=== PATIENT | male | born 2005 | race Caucasian/White ===

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

== ENCOUNTER 2023-02-27 08:08 | Outpatient (NON) | payer OTHER, SELFPAY | END 2023-02-27 08:09 | disposition home or self-care (01) | LOC: ANHLAB 02-28 08:11 | PROVIDERS: PCP Family Medicine; Visit Provider Internal Medicine Gastroenterology | DX: R10.9 Unspecified abdominal pain (principal) | CPT/HCPCS: 88305 ==

== ENCOUNTER 2023-02-27 08:11 | Day surgery (SDC) | payer OTHER, SELFPAY ==
[2023-02-22 14:42] VITALS: BMI 26.7
[2023-02-27 08:40] VITALS: BP 142/84; PULSE 60; RESP 20; TEMP 36.1; O2SAT 99
--- NOTE | 2023-02-27 09:06 | WPDANESEPPF ---
Anes - Initial Pre Proc Eval Procedure: Operation Date: 02/27/23 10:00 Proposed Procedures p Diagnostic Colonoscopy - Ko Whyte MD Date/Time: 02/27/23 09:06 Surgeon: Ko Whyte MD Pre Op Diagnosis: Abdominal Pain and Irritable Bowel Syndrome Patient Data Age: 18 Gender: M Height: 1.63 m Weight: 70.76 kg Allergies Allergy/AdvReac Type Severity Reaction Status Date / Time No Known Allergies Allergy Unknown Verified 02/22/23 14:32 Home Medications Medication Instructions Recorded Confirmed Type escitalopram oxalate 10 mg tablet 10 mg PO DAILY 02/22/23 02/22/23 History (Lexapro) Patient hx anesthesia problems: none Family hx anesthesia problems: none Results Review: All pre-operative results and documents have been reviewed as part of the pre-operative evaluation. [facility] [place] Past Medical History Medical History Abdominal pain Alopecia (~2021) TSH 2.03, free T4-1 3, vitamin B12 426, folic acid 10.0, iron 64 with 19% saturation and ferritin low at 34. Altered bowel habits Bloating BMI 26.0-26.9,adult BMI 27.0-27.9,adult BMI 28.0-28.9,adult BMI 31.0-31.9,adult BMI 33.0-33.9,adult BMI 34.0-34.9,adult Chronic anxiety COVID-19 (~06/03/22) fully vaccinated with symptoms for 10 days Eczema IBS (irritable bowel syndrome) Low back pain Mixed hyperlipidemia (08/23/22) total cholesterol 200, triglycerides 164, HDL low at 35, LDL 135 with ratio of 5.7 on 08/23/2022. Overweight (BMI 25.0-29.9) Seasonal allergies [employer] Surgical History Surgical History (Updated 02/27/23 @ 09:06 by Ever Watts MD) H/O wisdom tooth extraction Family History Family History Grandparent Diabetes mellitus, Onset Age: 50 Father Family history of cardiac disorder Social History Social History Smoking status: Never smoker Second hand tobacco smoke exposure: No Alcohol intake: never Substance use: never Substance use type: does not use Lack of Transportation: No Lack of Food: Never True Current Housing: I Have Housing Concerned About Future Housing: No Difficulty Paying Gas/Electric Bills: No Difficulty Paying for Meds: No Currently Unemployed: No Education: High School Diploma/GED Difficulty w/ Childcare or Family Care: No Living arrangements: with family Spiritual care concerns: No Anes - Eval Final PreProcedure Day of Procedure 02/27/23 09:06 Patient weight: overweight Heart: regular rate and rhythm Lungs: clear to auscultation Airway: Mallampati scale class II Neurological: alert and oriented Last oral intake: >/= 8 hours ASA classification: II Emergent: no Anesthetic plan: proceed Anesthesia type and monitoring: general GIVS and standard monitoring Results Review: All pre-operative results and documents have been reviewed as part of the pre-operative evaluation. Informed Consent: The patient's anesthetic plan and its attendant risks and benefits were discussed with the patient/family/POA. Questions were solicited and answers provided to the satisfaction of the patient/family/POA.
[2023-02-27] MEDS: LACTATED RINGERS 1,000 ML 150 ML IV CONT (09:28)
--- NOTE | 2023-02-27 09:32 | PM.HPGS ---
History of Present Illness History of Present Illness Consent: Risks, benefits, and alternatives have been discussed and questions answered. Patient agrees to proceed with procedure. Chief complaint: Abdominal Pain and Irritable Bowel Syndrome Narrative: Khalif Bahena is a 18 year old male with loose stools since had covid. Review of Systems Constitutional: Constitutional: Denies headache(s) and Denies weakness Eyes: Eyes: Denies blurry vision ENT: Reports Normal hearing present, Denies headache(s) and Denies neck pain Cardiovascular: Cardiovascular: Denies chest pain and Denies dyspnea Respiratory: Respiratory: Denies dyspnea Gastrointestinal: Gastrointestinal: Reports no additional gastrointestinal complaints Genitourinary: Genitourinary: Denies dysuria Musculoskeletal: Musculoskeletal: Denies neck pain Integumentary/Breasts: Skin/Breast: Denies dry skin Neurologic: Reports Normal hearing present, Denies headache(s) and Denies weakness Psychiatric: Psychiatric: Denies anxiety Endocrine: Endocrine: Denies change in body appearance Hematologic/Lymphatic: Hematologic/Lymphatic: Denies easy bleeding Allergic/Immunologic: Allergic/Immunologic: Denies urticaria PMFSH Past Medical History Medical History Abdominal pain Alopecia (~2021) TSH 2.03, free T4-1 3, vitamin B12 426, folic acid 10.0, iron 64 with 19% saturation and ferritin low at 34. Altered bowel habits Bloating BMI 26.0-26.9,adult BMI 27.0-27.9,adult BMI 28.0-28.9,adult BMI 31.0-31.9,adult BMI 33.0-33.9,adult BMI 34.0-34.9,adult Chronic anxiety COVID-19 (~06/03/22) fully vaccinated with symptoms for 10 days Eczema IBS (irritable bowel syndrome) Low back pain Mixed hyperlipidemia (08/23/22) total cholesterol 200, triglycerides 164, HDL low at 35, LDL 135 with ratio of 5.7 on 08/23/2022. Overweight (BMI 25.0-29.9) Seasonal allergies [employer] Surgical History Surgical History (Updated 02/27/23 @ 09:06 by Ever Watts MD) H/O wisdom tooth extraction Family History Family History Grandparent Diabetes mellitus, Onset Age: 50 Father Family history of cardiac disorder Social History Social History Smoking status: Never smoker Second hand tobacco smoke exposure: No Alcohol intake: never Substance use: never Substance use type: does not use Lack of Transportation: No Lack of Food: Never True Current Housing: I Have Housing Concerned About Future Housing: No Difficulty Paying Gas/Electric Bills: No Difficulty Paying for Meds: No Currently Unemployed: No Education: High School Diploma/GED Difficulty w/ Childcare or Family Care: No Living arrangements: with family Spiritual care concerns: No Meds Home Medications and Allergies Home Medications Medication Instructions Recorded Confirmed Type escitalopram oxalate 10 mg tablet 10 mg PO DAILY 02/22/23 02/27/23 History (Lexapro) Allergies Allergy/AdvReac Type Severity Reaction Status Date / Time No Known Allergies Allergy Unknown Verified 02/27/23 09:25 Vital Signs Vital Signs - 24 hr 02/27/23 08:40 Temperature 96.9 F L Pulse Rate 60 Respiratory Rate 20 Blood Pressure 142/84 H Pulse Oximetry 99 Oxygen Delivery Room Air Exam Const: General: comfortable and no acute distress HENMT: Face/Nose/Sinus: Normal nares present Eyes: General: appearance normal, both eyes and all related structures Neck: Neck: no JVD Resp: Auscultation: clear to auscultation bilaterally Cardio: Rate: regular rate Rhythm: regular rhythm GI: Inspection: non-distended GI Palp: Yes Soft to palpation Skin: General skin exam: normal color Neuro: General: gait normal Speech: normal speech Extrem: General: normal to inspection Psych: Mental Status: m
[2023-02-27 09:46] VITALS: BP 97/62; PULSE 60; RESP 20; O2SAT 98
[2023-02-27 09:56] VITALS: BP 110/71; PULSE 61; RESP 20; O2SAT 100
--- NOTE | 2023-02-27 09:58 | WPDANESPN ---
Anes - Prog Note Post-Op Date/Time: 02/27/23 09:58 Cardiovascular status: normal Respiratory status: normal Airway patency: baseline Mental status: baseline Post-Op hydration status: normal Vital Signs: Last Vital Signs Temp 36.1 C L 02/27/23 08:40 Pulse 60 02/27/23 08:40 Resp 20 02/27/23 08:40 BP 142/84 H 02/27/23 08:40 Pulse Ox 99 02/27/23 08:40 O2 Del Method Room Air 02/27/23 08:40 Pain Score (VAS): 0/10 I/O: Intake & Output 02/26/23 02/27/23 02/27/23 23:59 07:59 15:59 Intake Total 800 Balance 800 Patient Feedback: Patient satisfied with anesthetic care.
[2023-02-27 10:06] VITALS: BP 113/61; PULSE 76; RESP 20; O2SAT 100
== END 2023-02-27 10:22 | disposition home or self-care (01) ==
PROVIDERS: PCP Family Medicine; Visit Provider Internal Medicine Gastroenterology
PROC: 0DJD8ZZ Inspection of Lower Intestinal Tract, Via Natural or Artificial Opening Endoscopic (ICD-10-PCS; CPT 45378; principal; 2023-02-27 10:00)
DX: K58.9 Irritable bowel syndrome, unspecified (principal)
CPT/HCPCS: 45380